=== PATIENT | female | born 1970 | race Caucasian/White ===

== ENCOUNTER 2025-02-20 12:26 | Outpatient (AMB) | payer OTHER, SELFPAY ==
--- NOTE | 2025-02-20 12:34 | A.OFFVIS_ITS ---
VS Expanded 02/20/25 12:35 02/20/25 12:52 Height 5 ft 2 in 5 ft 2 in Weight 191 lb 2.252 oz 191 lb BMI 35.0 34.9 Intake Visit Reasons: Obesity Nutrition Presentation Details: Pt presents for MNT for obesity Pt reports dealing with elevated BP Started incorporating Physical activity : walking dog 15 minutes twice a day Typical meal Breakfast 9-10 am 2 eggs (boiled) with toast and butter , juice (diamond sapna hibiscus aand georges , pineapple root vegetables ( malanga/yautia and sweet potato) with cod with egg, cabbage onion , water or milk fruits: banana or apple 7-8 pm cereal (cornflakes with a tablespoon of peanut butter and milk lactose free) Pt reports working on making healthier food choices but has not noticed weight loss beverages: water, juice tea [facility]-Gckjeui-Rk.Jeor Equation Height: 5 ft 2 in Weight: 191 lb Resting Metabolic Rate: 1413.23 Calculated Activity Level: Sedentary Calories Needed to Maintain Weight: 1695.88 Diagnosis Nutrition problem #1: overweight/obesity As related to (etiology) #1: diagnosis As evidenced by (sign/symptom) #1: knowledge deficit of diet Assessment & Plan Assessment & Plan (1) Obesity (BMI 30-39.9): Code(s): E66.9 - Obesity, unspecified Category: Medical Plan: Wt: 87 Kg ( 03/03 ) Est kcal needs as per MSJ: 1700 (40% carb, 30% protein/fat) Est fluid needs as per 25-30 ml/d: 2600 Est prot per day as per 1 g/kg bw: 80 Recommend fiber intake : 8-10 g per day and gradually increase to 25-28 g per day for women and 35-38 g for men or as tolerated Recommend sodium intake per day : less than 1500 mg less than 2000 mg Educated patient on: ( R = reviewed V = verbalizes understanding N/R = needs review N/A = not applicable * Food sources of carbohydrate, adequate serving sizes and its role in various health conditions: R * Differences between complex carbohydrates a simple carbohydrates, role of fiber in diet: R * Lean protein sources of foods: R * Differences between types of fats and role in diet (mono on saturated fat fatty acids, saturated fatty acids, trans fats): R V N/R * Food sources of sodium in salt and healthy modifications for heart health in kidney health: R * Vitamins and minerals: R V N/R * Healthy plate method concept: R V * Physical activity: Benefits a precaution: R * Patient Instructions: Have one meal replacement at lunch time Choose low sodium food options - see list of low sodium seasonings, food options Coding Level of Care Code Nutr Indiv Intake (92040) Diagnoses Obesity (BMI 30-39.9) E66.9 Time Spent (min) 30
[2025-02-20 12:35] VITALS: BMI 35.0
--- OUTSIDE RECORDS SUMMARY | 2025-02-20 13:18 | XMS_ITS | Clinical Summary ---
Author Organization [facility] Address [address] [place] [address] Phone Care Team Providers Care Die Hardener Name Role Phone Elena Maher MD Primary Care Provider [phone] Allergies Active Allergy Reactions Criticality Noted Date Comments Aspirin Itching,Rash 01/31/2024 Medications diclofenac (VOLTAREN) 1 % topical gel Apply 1 g topically daily. 01/31/20 24 Active LORazepam (ATIVAN) 1 mg tablet Take 1 Tablet by mouth every 6 hours as needed for Anxiety. 04/03/20 24 Active temazepam (RESTORIL) 30 mg capsule Take 1 Capsule by mouth daily. 01/31/20 24 Active DULoxetine (CYMBALTA) [address] capsule Take 1 capsule (60 mg total) by mouth 1 (one) time each day. Do not crush or chew. 30 each 5 08/12/19 25 Active calcium lactate 100 mg calcium tablet Take 4 tablets (400 mg total) by mouth 1 (one) time each day. Active pregabalin (LYRICA) 50 mg capsule TAKE 1 CAPSULE (50 MG TOTAL) BY MOUTH 2 (TWO) TIMES A DAY. MAX DAILY AMOUNT: 100 MG 30 capsule 1 10/03/19 25 Active acetaminophen (TYLENOL) 500 mg tablet Take 1 tablet (500 mg total) by mouth every 6 (six) hours if needed for mild pain. 90 tablet 1 11/22/19 25 Active meloxicam (MOBIC) 7.5 mg tablet Take 1 tablet (7.5 mg total) by mouth 1 (one) time each day. 11/06/19 25 Active losartan (COZAAR) 100 mg tablet Take 1 tablet (100 mg total) by mouth 1 (one) time each day. 90 each 1 02/04/20 25 026 Active amitriptyline (ELAVIL) 50 mg tablet TAKE 1 TABLET BY MOUTH EVERYDAY AT BEDTIME 90 tablet 1 02/20/20 25 Active polyethylene glycol (Golytely) 236-22.74-6.7 4 -5.86 gram solution Take 4L by mouth once for one dose. May substitue any PEG. Starting at 6PM the night before your procedure drink 1 8oz glasses at your own pace until you complete half of the gallon. Finish 2nd half of the gallon 5 hours before your procedure. 4000 mL 08/01/19 25 025 Discontinued(T herapy completed) bisacodyL (DULCOLAX) 5 mg EC tablet Take 2 tablets by mouth right before beginning bowel prep. See instructions provided by the office 2 tablet 08/01/19 25 025 Discontinued(T herapy completed) meclizine (ANTIVERT) 12.5 mg tablet Take 1 tablet (12.5 mg total) by mouth 3 (three) times a day if needed for dizziness. 025 Discontinued(T herapy completed) amitriptyline (ELAVIL) 50 mg tablet Take 1 tablet (50 mg total) by mouth at bedtime. 90 tablet 1 08/12/19 25 025 Discontinued cyanocobalami n (VITAMIN B-12) 500 mcg tablet Take 1 tablet (500 mcg total) by mouth 1 (one) time each day. 025 Discontinued(P rescriber Discontinued) omega-3 acid ethyl esters (LOVAZA) 1 gram capsule Take 1 capsule (1 g total) by mouth 2 (two) times a day. 025 Discontinued(P rescriber Discontinued) losartan (COZAAR) 50 mg tablet TAKE 1 TABLET BY MOUTH EVERY DAY 90 tablet 3 11/05/19 25 025 Discontinued(D ose adjustment) hydroCHLOROth iazide (MICROZIDE) 12.5 mg capsule TAKE 1 CAPSULE BY MOUTH DAILY FOR 180 DAYS. 90 capsule 1 11/26/19 25 025 Discontinued(D ose adjustment) Active Problems Problem Noted Date Diagnosed Date Primary hypertension 02/03/2025 Obesity (BMI 30-39.9) 02/03/2025 Anxiety 01/31/2024 Fibromyalgia 01/31/2024 Hyperlipidemia 01/31/2024 Rheumatoid arthritis ([facility] V24, [facility] V28) 01/31/2024 Encounters Date Type Department Care Team Description 02/03/2025 8:30 AM EDT Office Visit Internal Medicine - [address] [place] [address] Elena Maher MD Encounter for annual physical exam (Primary Dx); Mixed hyperlipidemia; Fibromyalgia; Anxiety; Rheumatoid arthritis, involving unspecified site, unspecified whether rheumatoid factor present ([facility] V24, [facility] V28); Vitamin D deficiency; Other fatigue; Primary hypertension; Tubular adenoma of colon; Obesity (BMI 30-39.9) from Last 3 Months Immunizations Name Administration Dates Next Due Pneumococcal conjugate 20 va lent (Prevnar 20, PCV 20) 2mo and older 02/03/2025 Tdap Tetanus diptheria acell ular pertussis (Boostrix; Adacel) 7yo and older 02/03/2025 Surgical History Surgery Date Site/Laterality Comments HYSTERECTOMY PROCEDURE: HISTORICAL HYSTERECTOMY CHOLECYSTECTOMY PROCEDURE: HISTORICAL CHOLECYSTECTOMY SHOULDER SURGERY Right PROCEDURE: HISTORICAL SHOULDER SURGERY KNEE SURGERY Right PROCEDURE: HISTORICAL KNEE SURGERY HAND SURGERY Right PROCEDURE: HISTORICAL HAND SURGERY COLONOSCOPY W/ BIOPSIES COLONOSCOPY W/ BIOPSIES 08/22/2024 N/A Medical History Medical History Date Comments Anxiety Fibromyalgia Hyperlipidemia Primary hypertension 02/03/2025 Family History Medical History Relation Name Comments Dementia Aunt 1 maternal Dementia Aunt 2 maternal Diabetes Brother Rheum arthritis Brother Diabetes Father Diabetes Mother Hyperlipidemia Mother Stroke Mother Hyperlipidemia Sister 1 Hypertension Sister 1 Hyperthyroidism Sister 1 Ovarian cancer Sister 2 Colon cancer Son Relation Name Status Comments Aunt 1 Alive Aunt 2 Brother Alive Father Mother Sister 1 Alive Sister 2 Son Alive Social History Tobacco Use Types Packs/Day Years Used Date Smoking Tobacco: Never Smokeless Tobacco: Never Tobacco Cessation:Counseling Given: Not Answered Alcohol Use Standard Drinks/Week Comments Not Currently 0 (1 standard drink = 0.6 oz pur e alcohol) Interpersonal Safety Answer Date Record ed Physical Abuse 08/22/2024 Verbal Abuse 08/22/2024 Education Answer Date Recorded What is the highest level of school you have completed or the highest degree you have received? High school graduate 02/03/2025 Comments No Sex and Gender Information Value Date Recorded Sex Assigned at Female 08/22/2024 1:18 PM EST Legal Sex Female 11:01 AM EDT Gender Identity Female 08/22/2024 1:18 PM EST Sexual Orientation Straight 08/22/2024 1: 18 PM EST Obstetrics History Last Filed Vital Signs Vital Sign Reading Time Taken Comments Blood Pressure 122/74 02/03/2025 8:32 AM EDT Pulse 87 02/03/2025 8:32 AM EDT Temperature 36.6 C (97.9 F) 02/03/2025 8:32 AM EDT Respiratory Rate 18 02/03/2025 8:32 AM EDT Oxygen Saturation 97% 02/03/2025 8:32 AM EDT Inhaled Oxygen Concentration - - Weight 85.3 kg (188 lb) 02/03/2025 8:32 AM EDT Height 157.5 cm (5' 2 ) 02/03/2025 8:32 AM EDT Body Mass Index 34.39 02/03/2025 8:32 AM EDT Plan of Treatment Health Maintenance Due Date Last Done Comments Hepatitis B Vaccines (1 of 3 - 19+ 3-dose series) 1987 Cervical Cancer Screening: Pap Smear 1989 Zoster Vaccines (1 of 2) 2018 Influenza Vaccine (#1) 2025 07/28/2024 Depression Screening 07/09/2025 01/31/2024 Postpon ed from 07/10/2024 (Not clinically appropriate to address at this time) Hypertension/CHF/CAD Annual BMP Blood Test 02/03/2026 02/03/2025, 09/02/2024, 01/31/2024, Additional history exists Social Influencers of Health Screening 02/03/2026 02/03/2025 Breast Cancer Screening 05/02/2026 05/02/2024 Cholesterol Screening (Lipid Panel) 02/03/2030 02/03/2025, 09/02/2024, 01/31/2024, Additional history exists Colorectal Cancer Screening: Colonoscopy 08/22/2034 08/22/2024 DTaP,Tdap,and Td Vaccines (2 - Td or Tdap) 02/03/2035 02/03/2025 HIV Screening Completed 01/31/2024, 01/31/2024 Hepatitis C Screening Completed 01/31/2024 COVID-19 Vaccine Completed 07/28/2024 Pneumococcal Vaccine: 50+ Years Completed 02/03/2025 HIB Vaccines Aged Out No longer eligi ble based on patient's age to complete this topic HPV Vaccines Aged Out No longer eligi ble based on patient's age to complete this topic Hepatitis A Vaccines Aged Out No long er eligible based on patient's age to complete this topic IPV Vaccines Aged Out No longer eligi ble based on patient's age to complete this topic MMR Vaccines Aged Out No longer eligi ble based on patient's age to complete this topic Meningococcal ACWY Vaccine Aged Out N o longer eligible based on patient's age to complete this topic Meningococcal B Vaccine Aged Out No l onger eligible based on patient's age to complete this topic RSV Immunization Patients Under 20 months Aged Out No longer eligible b ased on patient's age to complete this topic Varicella Vaccines Aged Out No longer eligible based on patient's age to complete this topic Procedures Procedure Name Priority Date/Time Associated Diagnosis Comments CBC WITH AUTO DIFFERENTIAL Routine 02/03/2025 9:31 AM EDT Encounter for annual physical exam Other fatigue VITAMIN D 25 HYDROXY Routine 02/03/2025 9:31 AM EDT Encounter for annual physical exam Vitamin D deficiency LIPID PANEL WITH REFLEX TO DIRECT LDL Routine 02/03/2025 9:31 AM EDT Encounter for annual physical exam Mixed hyperlipidemia COMPREHENSIVE METABOLIC PANEL Routine 02/03/2025 9:31 AM EDT Encounter for annual physical exam Other fatigue VITAMIN B12 Routine 02/03/2025 9:31 AM EDT Encounter for annual physical exam Other fatigue CBC AND DIFFERENTIAL Routine 02/03/2025 9:31 AM EDT Encounter for annual physical exam Other fatigue COLONOSCOPY Routine 08/22/2024 2:41 PM EST Colon cancer screening RADHA SCREENING DIGITAL Routine 05/02/2024 3:30 PM EDT Encounter for screening mammogram for malignant neoplasm of breast DEPRESSION SCREENING Routine 01/31/2024 HEPATITIS C SCREENING Routine 01/31/2024 HIV SCREENING Routine 01/31/2024 from Last 3 Months or Most Recently Relevant to Health Maintenance Results * (ABNORMAL) Lipid panel with reflex to direct LDL (02/03/2025 9:31 AM EDT) Cholesterol 220(H) 0 - 200 mg/dL LAB CHEMISTRY METHOD 02/03/2025 4:02 PM EDT [facility] Triglycerides 182(H) 0 - 150 mg/dL LAB CHEMISTRY METHOD 02/03/2025 4:02 PM EDT [facility] HDL 47 >=40 mg/dL LAB CHEMISTRY METHOD 02/03/2025 4:02 PM EDT [facility] LDL Calculated 137(H) 0 - 100 mg/dL LAB CHEMISTRY METHOD 02/03/2025 4:02 PM EDT [facility] VLDL Cholesterol Wally 36.4 mg/dL LAB CHEMISTRY METHOD 02/03/2025 4:02 PM T [facility] Non HDL Chol. (LDL+VLDL) 173(H) <145 mg/dL LAB CHEMISTRY METHOD 02/03/2025 4:02 PM EDT [facility] Chol/HDL Ratio 4.7(H) 0.0 - 4.4 LAB CHEMISTRY METHOD 02/03/2025 4:02 PM EDT [facility] Blood Venous blood specimen / Unknown Venipuncture / Unknown 02/03/2025 9:31 AM EDT 02/03/2025 9:31 AM EDT us Elena Maher MD LAB BLOOD ORDERABLES Final Resul t [facility] [address] [place] [address], * (ABNORMAL) CBC auto differential (02/03/2025 9:31 AM EDT) [facility] WBC 9.7 4.8 - 10.8 K/mcL LAB HEMETOLOGY METHOD 02/03/2025 2:37 PM EDT [facility] RBC 5.40(H) 3.80 - 4.80 M/mcL LAB HEMETOLOGY METHOD 02/03/2025 2:37 PM EDT [facility] Hemoglobin 14.8 11.5 - 16.0 g/dL LAB HEMETOLOGY METHOD 02/03/2025 2:37 PM EDT [facility] Hematocrit 46.4 35.0 - 47.0 % LAB HEMETOLOGY METHOD 02/03/2025 2:37 PM EDT [facility] MCV 86.6 79.0 - 98.0 FL LAB HEMETOLOGY METHOD 02/03/2025 2:37 PM EDT [facility] MCH 27.6 27.0 - 32.0 pcg LAB HEMETOLOGY METHOD 02/03/2025 2:37 PM EDT [facility] MCHC 31.9(L) 32.0 - 37.0 g/dL LAB HEMETOLOGY METHOD 02/03/2025 2:37 PM EDT [facility] RDW 14.9 11.0 - 15.0 % LAB HEMETOLOGY METHOD 02/03/2025 2:37 PM EDT [facility] Platelets 315 130 - 400 K/mcL LAB HEMETOLOGY METHOD 02/03/2025 2:37 PM EDT [facility] MPV 9.2 7.0 - 11.0 FL LAB HEMETOLOGY METHOD 02/03/2025 2:37 PM EDT [facility] NRBC 0.0 <1.0 % LAB HEMETOLOGY METHOD 02/03/2025 2:37 PM EDT [facility] NRBC Absolute 0.00 <0.10 K/mcL LAB HEMETOLOGY METHOD 02/03[facility]2025 [facility] Neutrophils Relative 55.6 % LAB HEMETOLOGY METHOD 02/03/2025 2:37 PM EDT [facility] Lymphocytes Relative 36.8 % LAB HEMETOLOGY METHOD 02/03/2025 2:37 PM EDT [facility] Monocytes Relative 5.4 % LAB HEMETOLOGY METHOD 02/03/2025 2:37 PM EDT [facility] Eosinophils Relative 1.5 % LAB HEMETOLOGY METHOD 02/03/2025 2:37 PM [facility] Basophils Relative 0.5 % LAB HEMETOLOGY METHOD 02/03/2025 2:[facility] Immature Granulocytes Relative 0.2 % LAB HEMETOLOGY METHOD 02/03/2025 2:37 PM [facility] Neutrophils Absolute 5.38 1.50 - 7.00 K/mcL LAB HEMETOLOGY METHOD 02/03/2025 2:37 PM [facility] Lymphocytes Absolute 3.57 1.00 - 5.00 K/mcL LAB HEMETOLOGY METHOD 02/03/2025 2:37 [facility] Monocytes Absolute 0.52 0.20 - 1.00 K/mcL LAB HEMETOLOGY METHOD 02/03/2025 2:37 PM [facility] Eosinophils Absolute 0.15 0.00 - 0.50 K/mcL LAB HEMETOLOGY METHOD 02/03/2025 2:37 PM [facility] Basophils Absolute 0.05 0.00 - 0.20 K/mcL LAB HEMETOLOGY METHOD 02/03/2025 2:37 PM EDT [facility] Immature Granulocytes Absolute 0.02 0.00 - 0.03 K/mcL LAB HEMETOLOGY METHOD 02/03/2025 2:37 PM EDT [facility] Blood Venous blood specimen / Unknown Venipuncture / Unknown 02/03/2025 9:31 AM EDT 02/03/2025 9:31 AM EDT Elena Maher MD LAB BLOOD ORDERABLES Final Resul t Performing Organization Address [facility] de Phone Number [facility] [address] [place] [address], * Vitamin D 25 hydroxy (02/03/2025 9:31 AM EDT) Vit D, 25-Hydroxy 34.8 30.0 - 80.0 ng/mL LAB CHEMISTRY METHOD 02/03/2025 4:47 PM EDT [facility] Blood Venous blood specimen / Unknown Venipuncture / Unknown 02/03/2025 9:31 AM EDT 02/03/2025 9:31 AM EDT Elena Maher MD LAB BLOOD ORDERABLES Final Resul t Performing Organization Address [facility]/ZIP Co de Phone Number [facility] [address] [place] [address], [place] [phone] * Vitamin B12 (02/03/2025 9:31 AM EDT) Vitamin B-12 700 250 - 900 pcg/mL LAB CHEMISTRY METHOD 02/03/2025 4:02 PM EDT [facility] Blood Venous blood specimen / Unknown Venipuncture / Unknown 02/03/2025 9:31 AM EDT 02/03/2025 9:31 AM EDT Elena Maher MD LAB BLOOD ORDERABLES Final Resul t [facility] [address] [place] [address], * Comprehensive metabolic panel (02/03/2025 9:31 AM EDT) Sodium 140 133 - 145 mmol/L LAB CHEMISTRY METHOD 02/03/2025 4:02 PM [facility] Potassium 4.5 3.5 - 5.5 mmol/L LAB CHEMISTRY METHOD 02/03/2025 4:02 PM [facility] Chloride 105 96 - 110 mmol/L LAB CHEMISTRY METHOD 02/03/2025 4:02 PM [facility] CO2 30 21 - 32 mmol/L LAB CHEMISTRY METHOD 02/03/2025 4:02 PM [facility] Anion Gap 5 3 - 11 LAB CHEMISTRY METHOD 02/03/2025 4:02 PM [facility] Glucose 99 70 - 100 mg/dL LAB CHEMISTRY METHOD 02/03/2025 4:02 PM [facility] BUN 17 5 - 25 mg/dL LAB CHEMISTRY METHOD 02/03/2025 4:02 PM [facility] Creatinine 0.58 0.50 - 1.10 mg/dL LAB CHEMISTRY METHOD 02/03/2025 4:02 PM [facility] eGFR 106 >=60 mL/min/1. 73m2 LAB CHEMISTRY METHOD 02/03/2025 4:02 PM [facility] Comment:Calculation based on the Chronic Kidney Disease Epidemiology Collaboration (CKD-EPI) equation refit without adjustment for race. BUN/Creatinine Ratio 29.3 LAB CHEMISTRY METHOD 02/03/2025 4:02 PM [facility] Calcium 9.6 8.5 - 10.5 mg/dL LAB CHEMISTRY METHOD 02/03/2025 4:02 PM [facility] AST (SGOT) 19 10 - 42 unit/L LAB CHEMISTRY METHOD 02/03/2025 4:02 PM EDT [facility] ALT (SGPT) 37 10 - 60 unit/L LAB CHEMISTRY METHOD 02/03/2025 4:02 PM EDT [facility] Alkaline Phosphatase 99 42 - 121 unit/L LAB CHEMISTRY METHOD 02/03/2025 4:02 PM EDT [facility] Total Protein 7.3 6.0 - 8.0 g/dL LAB CHEMISTRY METHOD 02/03/2025 4:02 PM EDT [facility] Albumin 4.0 3.2 - 5.0 g/dL LAB CHEMISTRY METHOD 02/03/2025 4:02 PM EDT [facility] Total Bilirubin 0.3 0.0 - 1.4 mg/dL LAB CHEMISTRY METHOD 02/03/2025 4:02 PM EDT [facility] Blood Venous blood specimen / Unknown Venipuncture / Unknown 02/03/2025 9:31 AM EDT 02/03/2025 9:31 AM EDT Elena Maher MD LAB BLOOD ORDERABLES Final Resul t [facility] [address] [place] [address], * [place]ONOSCOPY [place]est[place] - [facility] ENDOSCOPY (08/22/2024 2:41 PM EST) Anatomical Region Laterality Modality Endoscopy 08/22/2024 2:25 PM EST Impressions 08/22/2024 2:42 PM EST - The examined portion of the ileum was normal. - One 5 mm polyp in the ascending colon, removed with a cold snare. Resected and retrieved. - One 4 mm polyp in the descending colon, removed with a cold snare. Resected and retrieved. - Internal hemorrhoids. Recommendation: - Await pathology results. - Repeat colonoscopy for surveillance based on pathology results. Narrative 08/22/2024 2:42 PM EST [facility] GI Patient Name: Leticia Sun Procedure Date: 08/22/2024 2:25 PM Date of : 1970 Age: 54 Gender: Female Note Status: Finalized Attending MD: Denia Denson MD, Procedure Date No Time: 08/22/2024 Procedure: Colonoscopy Indications: Screening in patient at increased risk: Family history of 1st-degree relative with colorectal cancer before age 60 years Providers: Denia Denson MD Referring MD: Elena Maher MD Medicines: Propofol per Anesthesia Complications: No immediate complications. Estimated Blood Loss: Estimated blood loss: none. Procedure: Pre-Anesthesia Assessment: - ASA Grade Assessment: II - A patient with mild systemic disease. After I obtained informed consent, the scope was passed under direct vision. Throughout the procedure, the patient's blood pressure, pulse, and oxygen saturations were monitored continuously.The Colonoscope was introduced through the anus and advanced to the terminal ileum. The colonoscopy was performed without difficulty. The patient tolerated the procedure well. The quality of the bowel preparation was good. Findings: The perianal and digital rectal examinations were normal. The terminal ileum appeared normal. A 5 mm polyp was found in the ascending colon. The polyp was sessile. The polyp was removed with a cold snare. Resection and retrieval were complete. A 4 mm polyp was found in the descending colon. The polyp was sessile. The polyp was removed with a cold snare. Resection and retrieval were complete. Internal hemorrhoids were found during retroflexion. The hemorrhoids were Grade I (internal hemorrhoids that do not prolapse). Procedure Code(s): --- Professional --- 76900, Colonoscopy, flexible; with removal of tumor(s), polyp(s), or other lesion(s) by snare technique Diagnosis Code(s): --- Professional --- Z80.0, Family history of malignant neoplasm of digestive organs D12.2, Benign neoplasm of ascending colon D12.4, Benign neoplasm of descending colon CPT copyright 2020 [employer]. All rights reserved. The codes documented in this report are preliminary and upon reimbursement specialist review may be revised to meet current compliance requirements. Denia Denson MD 08/22/2024 2:42:05 PM This report has been signed electronically.Denia Denson MD Number of Addenda: 0 Note Initiated On: 08/22/2024 2:25 PM Scope In: Scope Out: Endoscopy Department at [facility] - [address] [place] [id number] Procedure Note Denia Denson MD - 08/22/2024 [facility] GI Patient Name: Leticia Sun Procedure Date: 08/22/2024 2:25 PM Date of : 1970 Age: 54 Gender: Female Note Status: Finalized Attending MD: Denia Denson MD, Procedure Date No Time: 08/22/2024 Procedure: Colonoscopy Indications: Screening in patient at increased risk: Familyhistory of 1st-degree relative with colorectal cancerbefore age 60 years Providers: Denia Denson MD Referring MD: Elena Maher MD Medicines: Propofol per Anesthesia Complications: No immediate complications. Estimated Blood Loss: Estimated blood loss: none. Procedure: Pre-Anesthesia Assessment: - ASA Grade Assessment: II - A patient with mild systemic disease. After I obtained informed consent, the scope was passed under direct vision. Throughout theprocedure, the patient's blood pressure, pulse, and oxygen saturations were monitored continuously.The Colonoscope was introduced through the anus and advanced to the terminal ileum. The colonoscopy was performed without difficulty. The patient tolerated the procedure well. The quality of the bowel preparation was good. Findings: The perianal and digital rectal examinations were normal. The terminal ileum appeared normal. A 5 mm polyp was found in the ascending colon. The polyp was sessile. The polyp was removed with acold snare. Resection and retrieval were complete. A 4 mm polyp was found in the descending colon. The polyp was sessile. The polyp was removed with acold snare. Resection and retrieval were complete. Internal hemorrhoids were found duringretroflexion. The hemorrhoids were Grade I (internal hemorrhoids that do not prolapse). Procedure Code(s): --- Professional --- 25999, Colonoscopy, flexible; with removal of tumor(s), polyp(s), or other lesion(s) by snare technique Diagnosis Code(s): --- Professional --- Z80.0, Family history of malignant neoplasm of digestive organs D12.2, Benign neoplasm of ascending colon D12.4, Benign neoplasm of descending colon CPT copyright 2020 [employer]. All rights reserved. The codes documented in this report are preliminary and upon reimbursement specialist reviewmay be revised to meet current compliance requirements. Denia Denson MD 08/22/2024 2:42:05 PM This report has been signed electronically.Denia Denson MD Number of Addenda: 0 Note Initiated On: 08/22/2024 2:25 PM Scope In: Scope Out: Endoscopy Department at [facility] - [address] [place] [phone] IMPRESSION: - The examined portion of the ileum was normal. - One 5 mm polyp in the ascending colon, removedwith a cold snare. Resected and retrieved. - One 4 mm polyp in the descending colon, removedwith a cold snare. Resected and retrieved. - Internal hemorrhoids. Recommendation: - Await pathology results. - Repeat colonoscopy for surveillance based on pathology results. us Denia Denson MD GI~PROCEDURE ORDERABLES Final Result * RADHA SCREENING DIGITAL (05/02/2024 3:30 PM EDT) Anatomical Region Laterality Modality Mammography 05/02/2024 1:30 PM EDT Narrative 05/02/2024 3:30 PM EDT [facility] Diagnostic Imaging Department [address] [place] [address] [id number] Patient: LETICIA SUNO.B./Age/Sex: 1970 - 53 - F Unit#: [id number] Location/Status: SPDIMAM/REG CLI Mnemonic/Ordering Site: DIGSC/SPMAM Ordering Physician: ZEN POSADAS APRN Radha Screening Digital - 05/02/24 - 1415 Report Status:Signed EXAM: [facility] Screening Digital EXAM DATE AND TIME: 05/02/2024 2:16 PM HISTORY: Annual screening COMPARISON: Outside film from [place] 06/20/2022, 05/17/2021 and 03/03/2020 TECHNIQUE: Bilateral digital breast tomosynthesis was performed in the CC and MLO projections. Computer aided detection with [employer] 7.2-H and [employer] 3D 3.1 was employed. TISSUE DENSITY: b. There are scattered areas of fibroglandular density. FINDINGS: No suspicious masses, grouped microcalcifications, or areas of architectural distortion are seen. The skin and vascularity are unremarkable. IMPRESSION: Stable mammographic appearance of the breasts. No evidence of malignancy is seen. A negative mammogram in the presence of a clinically suspicious palpable abnormality does not preclude the possibility of malignancy or alter the evelia cations for biopsy. BI-RADS: Category 1: Negative RECOMMENDATION(S): 1: Routine screening mammogram BILATERAL in 1 year. Dictating Physician: TRISH DAVIDSON MD Electronically Signed by: TRISH DAVIDSON MD Dic Date/Time: 05/02/24 1527 Sign date/Time: 05/02/24 1530 Procedure Note Trish Davidson MD - 05/11/2024 [facility] Diagnostic Imaging Department [address] [place], [place] [id number] Patient: LETICIA SUN/Age/Sex: 1970 - 53 - F Unit#: [id number] Location/Status: SPDIMAM/REG CLI Mnemonic/Ordering Site: [facility] Ordering Physician: ZEN POSADAS APRN Radha Screening Digital - 05/02/24 - 1415 Report Status:Signed EXAM: Radha Screening Digital EXAM DATE AND TIME: 05/02/2024 2:16 PM HISTORY: Annual screening COMPARISON: Outside film from [place] 06/20/2022, 05/17/2021 and03/03/2020 TECHNIQUE: Bilateral digital breast tomosynthesis was performed in the [employer] MLO projections. Computer aided detection with [employer] 7.2-H and[employer] 3D 3.1 was employed. TISSUE DENSITY: b. There are scattered areas of fibroglandular density. FINDINGS: No suspicious masses, grouped microcalcifications, or areas ofarchitectural distortion are seen. The skin and vascularity are unremarkable. IMPRESSION: Stable mammographic appearance of the breasts. No evidence of malignancyis seen. A negative mammogram in the presence of a clinically suspicious palpable abnormality does not preclude the possibility of malignancy or alter theindi cations for biopsy. BI-RADS: Category 1: Negative RECOMMENDATION(S): 1: Routine screening mammogram BILATERAL in 1 year. Dictating Physician: TRISH DAVIDSON MD Electronically Signed by: TRISH DAVIDSON MD Dic Date/Time: 05/02/24 1527 Sign date/Time: 05/02/24 1530 Zen Posadas PSYCHOLOGY TECHNICIAN IMG BI PROCEDURES Final Result * Depression Screening (01/31/2024) Depression Screening Abstracted Historical Provider HEALTH MAINTENANCE Final Result * HIV Screening (01/31/2024) HIV Screening Abstracted Historical Provider HEALTH MAINTENANCE Final Result * Hepatitis C Screening (01/31/2024) Hepatitis C Screening Abstracted Historical Provider HEALTH MAINTENANCE Final Result from Last 3 Months or Most Recently Relevant to Health Maintenance Insurance [facility] Care Teams Die Hardener Relationship Specialty Start Date End Date Elena Maher MD [address] [place] [address] [address] [place] [address] PCP - General 10/24/23
[2025-02-25 09:56] VITALS: BMI 34.9
== END 2025-02-20 13:13 | disposition home or self-care (01) ==
LOC: HO.ENCR 12:27
PROVIDERS: PCP Student in an Organized Health Care Education/Training Program; Visit Provider Dietitian, Registered
DX: E66.9 Obesity, unspecified (principal)

== ENCOUNTER → 2025-02-20 12:26 | Outpatient (BNVA) | payer OTHER, SELFPAY | PROVIDERS: PCP Student in an Organized Health Care Education/Training Program; Visit Provider Dietitian, Registered | DX: E66.9 Obesity, unspecified (principal); R03.0 Elevated blood-pressure reading, without diagnosis of hypertension; Z68.34 Body mass index [BMI] 34.0-34.9, adult; Z71.3 Dietary counseling and surveillance | CPT/HCPCS: 97802 ==

== ENCOUNTER 2025-04-10 11:35 | Outpatient (AMB) | payer OTHER, SELFPAY ==
[2025-04-10 12:35] VITALS: BMI 34.9
--- NOTE | 2025-04-10 12:35 | A.OFFVIS_ITS ---
VS Expanded 04/10/25 12:35 Height 5 ft 2 in Weight 190 lb 11.198 oz BMI 34.9 Intake Visit Reasons: obesity Medication List - Last Reconciled 04/10/[address], LDN magnesium citrate 125 mg PO BEDTIME omega-3 acid ethyl esters 1 cap PO DAILY Nutrition Presentation Details: Pt presents for MNT f/u for obesity Pt reports working on diet modifications, but does not see wt loss. Has coffee with 1/2 tbsp collagen Lunch: salad (lettuce/spinach/avocado/olive/ chicken thigh , water, before and after Dinner: follows healthy plat method snacks 4+/day fruits: 3-4/day vegetables: salad choosing low fat milk or fat free milk walking 30-40 min , 3 times/wk Assessment & Plan Assessment & Plan (1) Obesity (BMI 30-39.9): Code(s): E66.9 - Obesity, unspecified Category: Medical Plan: Wt: 87 Kg ( 03/03 ), 05/03 Est kcal needs as per MSJ: 1700 (40% carb, 30% protein/fat) Est fluid needs as per 25-30 ml/d: 2600 Est prot per day as per 1 g/kg bw: 80 Recommend fiber intake : 8-10 g per day and gradually increase to 25-28 g per day for women and 35-38 g for men or as tolerated Recommend sodium intake per day : less than 1500 mg less than 2000 mg Educated patient on: ( R = reviewed V = verbalizes understanding N/R = needs review N/A = not applicable * Food sources of carbohydrate, adequate serving sizes and its role in various health conditions: R * Differences between complex carbohydrates a simple carbohydrates, role of fiber in diet: R * Lean protein sources of foods: R * Differences between types of fats and role in diet (mono on saturated fat fatty acids, saturated fatty acids, trans fats): R * Food sources of sodium in salt and healthy modifications for heart health in kidney health: R * Vitamins and minerals: R * Healthy plate method concept: R V * Physical activity: Benefits a precaution: R * Patient Instructions: Have a meal replacement Choose low sodium foods- see list Coding Level of Care Code Nutr Indiv Subseq (67357) Diagnoses Obesity (BMI 30-39.9) E66.9 Time Spent (min) 30
--- OUTSIDE RECORDS SUMMARY | 2025-04-10 13:25 | XMS_ITS | Clinical Summary ---
Author Organization [facility] Address [address] [place] [id number] Phone Care Team Providers Care Travel Assistant Name Role Phone Zen Posadas ACCOUNTING GENERALIST Primary Care Provider [phone] Allergies Active Allergy Reactions Criticality Noted Date Comments Aspirin 09/26/2024 Medications losartan (COZAAR) 50 MG tablet Take 1 tablet by mouth every morning. 5 Active hydroCHLOROthiazid e 12.5 mg capsule Take 12.5 mg by mouth every morning. 5 Active DULoxetine (CYMBALTA) 60 MG capsule Take 60 mg by mouth daily. 5 Active temazepam (RESTORIL) 30 mg capsule Take 30 mg by mouth daily. Active LORazepam (ATIVAN) 2 MG tablet Take 2 mg by mouth every 6 (six) hours as needed for anxiety. Active amitriptyline (ELAVIL) 50 MG tablet Take 50 mg by mouth. 5 Active pregabalin (LYRICA) 50 MG capsule Take 50 mg by mouth. 5 Active omega-3 acid ethyl esters (LOVAZA) 1 gram capsule Take 1 capsule by mouth 2 (two) times a day. Active calcium lactate 100 mg calcium Tab Take 400 mg by mouth. Active cyanocobalamin, vitamin B-12, 500 MCG tablet Take 500 mcg by mouth. Active acetaminophen (TYLENOL) 650 MG CR tablet Take 1,300 mg by mouth every 6 (six) hours as needed for pain (specific location in comments). Active meloxicam (MOBIC) 7.5 MG tabletIndications: Polyarticular osteoarthritis Take once daily with food as follows: 1 tablet for 1 wk, then 2 tablets together thereafter 30 tablet Active Active Problems Problem Noted Date Diagnosed Date Polyarticular osteoarthritis 11/05/2024 Assessment & Plan (11/05/2024 10:57 AM EDT): Predominantly involving the right greater than left knees and right first MTP. Trial meloxicam, half dose to start given documented aspirin allergy. She can increase to full dose after 1 week if no adverse events with half dose. She will contact me if she has any medication concerns. If meloxicam is effective and tolerated, refills of this medication will be deferred to her primary care provider. 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 I have ordered some baseline serologies and inflammatory markers for a more complete picture. 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 I have provided written information in Marshallese on fibromyalgia for her review. I have encouraged her to continue low-dose aerobic exercise routine, which would be ideally water-based. She should discuss potential benefit of sleep study with her primary care provider given snoring and fatigue. In the absence of proven comorbid rheumatoid or other inflammatory arthritis, there is no indication for ongoing rheumatology specific management of this noninflammatory condition. We discussed that, as she is following with a psychiatrist, I will defer management of her antidepressants and anxiolytics to her psychiatrist. Sicca syndrome 11/05/2024 Assessment & Plan (11/05/2024 10:58 AM EDT): Oral sicca almost certainly exacerbated by amitriptyline, duloxetine, and pregabalin, but will obtain baseline Sjogren's serologies for completeness with routine labs today. Family History Medical History Relation Comments Diabetes Brother Rheumatoid arthritis Brother Diabetes Father Diabetes Mother Hyperlipidemia Mother Stroke Mother Hypertension Sister Hypothyroidism Sister Relation Status Comments Brother Father Mother Sister Social History Tobacco Use Types Packs/Day Years Used Date Smoking Tobacco: Never Smokeless Tobacco: Never Tobacco Cessation:Counseling Given: Not Answered Alcohol Use Standard Drinks/Week Comments Never 0 (1 standard drink = 0.6 oz pur e alcohol) Education Answer Date Recorded Are you interested in more education? Not on errol e 05/03/2024 Are you concerned about learning? Not on file 05/03/2024 No 05/03/2024 No 05/03/2024 Digital Access Answer Date Recorded No 05/03/2024 No 05/03/2024 Reliable internet access at home? Not on file 05/03/2024 Device with a working camera? Not on file Comments Unknown Sex and Gender Information Value Date Recorded Sex Assigned at Not on file Legal Sex Female 11:54 AM EDT Gender Identity Not on file Sexual Orientation Not on file Last Filed Vital Signs Vital Sign Reading Time Taken Comments Blood Pressure 140/96 11/05/2024 9:35 AM EDT Pulse 93 11/05/2024 9:35 AM EDT Temperature - - Respiratory Rate - - Oxygen Saturation 96% 11/05/2024 9:35 AM EDT Inhaled Oxygen Concentration - - Weight 84.4 kg (186 lb) 11/05/2024 9:35 AM EDT Height 157.5 cm (5' 2 ) 11/05/2024 9:35 AM EDT Body Mass Index 34.02 11/05/2024 9:35 AM EDT Plan of Treatment Health Maintenance Due Date Last Done Comments Adult Td,Tdap Booster 1970 CREATININE LEVEL 1970 POTASSIUM LEVEL 1970 DEPRESSION SCREENING 1980 HEPATITIS C SCREENING 1986 HIV ONE-TIME SCREENING (18-6 5 YEARS) 1986 SMOKING STATUS SCREENING (On ce After 26 Yrs) 1994 SCREENING FOR DIABETES 2003 MAMMOGRAM 2008 COLOGUARD 2013 COLONOSCOPY 2013 COLORECTAL CANCER SCREENING 2013 FIT TEST 2013 FOBT 2013 SIGMOIDOSCOPY 2013 VIRTUAL COLONOSCOPY 2013 PNEUMOCOCCAL VACCINES (50+ y ears) (1 of 1 - PCV) 2018 ZOSTER VACCINES (1 of 2) 2018 INFLUENZA VACCINE (#1) 2025 07/28/2024 LIPID PANEL 09/02/2029 09/02/2024 COVID-19 VACCINE Completed 07/28/2024 HEPATITIS A VACCINES Aged Out No long er eligible based on patient's age to complete this topic HIB VACCINES Aged Out No longer eligi ble based on patient's age to complete this topic MENINGOCOCCAL VACCINES (ACWY) Aged Out No longer eligible based on patient's age to complete this topic MENINGOCOCCAL VACCINES (B) Aged Out N o longer eligible based on patient's age to complete this topic Medical Devices Not on file Insurance [employer] [place] [address] [address] [address] ACO Care Teams Travel Assistant Relationship Specialty Start Date End Date Zen Posadas NP [address] [facility] [address] [place] [address] PCP - General Nurse Practitioner 11/05/24 Additional Source Comments The information contained in this document represents components of the legal health record. It is not the complete legal health record.[facility]
--- OUTSIDE RECORDS SUMMARY | 2025-04-10 13:25 | XMS_ITS | Clinical Summary ---
Author Organization [facility] Address [address] [place] [address] Phone Care Team Providers Care Maintenance And Custodian Supervisor Name Role Phone Elena Maher MD Primary Care Provider [phone] Allergies Active Allergy Reactions Criticality Noted Date Comments Aspirin Itching,Rash 01/31/2024 Medications LORazepam (ATIVAN) 1 mg tablet Take 1 Tablet by mouth every 6 hours as needed for Anxiety. 4 Active temazepam (RESTORIL) 30 mg capsule Take 1 Capsule by mouth daily. 4 Active DULoxetine (CYMBALTA) [address] capsule Take 1 capsule (60 mg total) by mouth 1 (one) time each day. Do not crush or chew. 30 each 5 5 Active calcium lactate 100 mg calcium tablet Take 4 tablets (400 mg total) by mouth 1 (one) time each day. Active pregabalin (LYRICA) 50 mg capsule TAKE 1 CAPSULE (50 MG TOTAL) BY MOUTH 2 (TWO) TIMES A DAY. MAX DAILY AMOUNT: 100 MG 30 capsule 1 5 Active acetaminophen (TYLENOL) 500 mg tablet Take 1 tablet (500 mg total) by mouth every 6 (six) hours if needed for mild pain. 90 tablet 1 5 Active meloxicam (MOBIC) 7.5 mg tablet Take 1 tablet (7.5 mg total) by mouth 1 (one) time each day. 5 Active losartan (COZAAR) 100 mg tablet Take 1 tablet (100 mg total) by mouth 1 (one) time each day. 90 each 1 5 08/02/19 26 Active amitriptyline (ELAVIL) 50 mg tablet TAKE 1 TABLET BY MOUTH EVERYDAY AT BEDTIME 90 tablet 1 5 Active diclofenac (VOLTAREN) 1 % topical gel Apply 2 g topically 4 (four) times a day if needed (Pain). 100 g 11 5 Active Active Problems Problem Noted Date Diagnosed Date Primary hypertension 02/03/2025 Obesity (BMI 30-39.9) 02/03/2025 Anxiety 01/31/2024 Fibromyalgia 01/31/2024 Hyperlipidemia 01/31/2024 Rheumatoid arthritis (CMS/[facility] V24, CMS/[facility] V28) 01/31/2024 Encounters Date Type Department Care Team Description 04/09/2025 Lab Requisition [facility] - Main Lab [address] [facility] [place] [address] Debbi Castro MD Encounter for gynecological examination (general) (routine) without abnormal findings 02/03/2025 8:30 AM EDT Office Visit Internal Medicine - [place] [address] [place] [address] Elena Maher MD Encounter for annual physical exam (Primary Dx); Mixed hyperlipidemia; Fibromyalgia; Anxiety; Rheumatoid arthritis, involving unspecified site, unspecified whether rheumatoid factor present (CMS/HCC V24, CMS/[facility] V28); Vitamin D deficiency; Other fatigue; Primary hypertension; Tubular adenoma of colon; Obesity (BMI 30-39.9) from Last 3 Months Immunizations Immunization Administration Dates Next Due Pneumococcal conjugate 20 [...] Safety Answer Date Record ed Physical Abuse Unrecognized value 08/22/2024 Verbal Abuse Unrecognized value 08/22/2024 Education Answer Date Recorded What is [...] (2 - Td or Tdap) 02/03/2035 02/03/2025 RSV Immunization Adult Patients (1 - 1-dose 75+ series) 2043 HIV Screening Completed 01/31/2024, 01/31/2024 Hepatitis C [...] 08/22/2024 2:41 PM EST Colon cancer screening GIL SCREENING DIGITAL Routine 05/02/2024 3:30 PM EDT [...] LAB CHEMISTRY METHOD 02/03/2025 4:02 PM EDT [facility] Triglycerides 182(H) 0 - 150 mg/dL LAB CHEMISTRY METHOD 02/03/2025 4:02 PM EDT [facility] HDL 47 >=40 mg/dL LAB CHEMISTRY METHOD 02/03/2025 4:02 PM EDT [facility] LDL Calculated 137(H) 0 - 100 mg/dL LAB CHEMISTRY METHOD 02/03/2025 4:02 PM [facility] VLDL Cholesterol Wally 36.4 mg/dL LAB CHEMISTRY METHOD 02/03/2025 4:02 PM EDT [facility] Non HDL Chol. (LDL+VLDL) 173(H) <145 mg/dL LAB CHEMISTRY METHOD 02/03/2025 4:02 PM EDT [facility] Chol/HDL Ratio 4.7(H) 0.0 - 4.4 LAB CHEMISTRY METHOD 02/03/2025 4:02 PM [facility] Blood Venous blood specimen / Unknown Venipuncture / Unknown 02/03/2025 9:31 AM EDT 02/03/2025 9:31 AM EDT us Elena Maher MD LAB BLOOD ORDERABLES Final Resul t [facility] [address] [place] [address], [place] [phone] * (ABNORMAL) CBC auto differential (02/03/2025 9:31 AM EDT) WBC 9.7 4.8 - 10.8 K/mcL LAB HEMETOLOGY METHOD 02/03[facility]2025 2[facility] RBC 5.40(H) 3.80 - 4.80 M/mcL LAB HEMETOLOGY METHOD 02/03/2025 2:37 PM [facility] Hemoglobin 14.8 11.5 - 16.0 g/dL LAB HEMETOLOGY METHOD 02/03/2025 2:37 PM EDT [facility] Hematocrit 46.4 35.0 - 47.0 % LAB HEMETOLOGY METHOD 02/03/2025 2:[facility] MCV 86.6 79.0 - 98.0 FL LAB HEMETOLOGY METHOD 02/03/2025 2:37 PM [facility] MCH 27.6 27.0 - 32.0 pcg LAB HEMETOLOGY METHOD 02/03/2025 2:37 PM EDT [facility] MCHC 31.9(L) 32.0 - 37.0 g/dL LAB HEMETOLOGY METHOD 02/03/2025 2:37 PM EDT [facility] RDW 14.9 11.0 - 15.0 % LAB HEMETOLOGY METHOD 02/03/2025 2:37 [facility] Platelets 315 130 - 400 K/mcL LAB HEMETOLOGY METHOD 02/03/2025 2:37 [facility] MPV 9.2 7.0 - 11.0 FL LAB HEMETOLOGY METHOD 02/03/2025 2:[facility] NRBC 0.0 <1.0 % LAB HEMETOLOGY METHOD 02/03/2025 2:37 PM [facility] NRBC Absolute 0.00 <0.10 K/mcL LAB HEMETOLOGY METHOD 02/03/2025 2:37 [facility] Neutrophils Relative 55.6 % LAB HEMETOLOGY METHOD 02/03/2025 2:37 PM [facility] Lymphocytes Relative 36.8 % LAB HEMETOLOGY METHOD 02/03/2025 2:37 PM [facility] Monocytes Relative 5.4 % LAB HEMETOLOGY METHOD 02/03/2025 2:37 PM [facility] Eosinophils Relative 1.5 % LAB HEMETOLOGY METHOD 02/03/2025 2:37 PM [facility] Basophils Relative 0.5 % LAB HEMETOLOGY METHOD 02/03/2025 2:[facility] Immature Granulocytes Relative 0.2 % LAB HEMETOLOGY METHOD 02/03/2025 2:37 PM [facility] Neutrophils Absolute 5.38 1.50 - 7.00 K/mcL LAB HEMETOLOGY METHOD 02/03/2025 2:[facility] Lymphocytes Absolute 3.57 1.00 - 5.00 K/mcL LAB HEMETOLOGY METHOD 02/03/2025 2:37 PM EDT [facility] Monocytes Absolute 0.52 0.20 - 1.00 K/[facility] LAB HEMETOLOGY METHOD 02/03/2025 2:37 PM EDT [facility] Eosinophils Absolute 0.15 0.00 - 0.50 K/[facility] LAB HEMETOLOGY METHOD 02/03/2025 2:37 PM EDT [facility] Basophils Absolute 0.05 0.00 - 0.20 K/[facility] LAB HEMETOLOGY METHOD 02/03/2025 2:37 PM EDT [facility] Immature Granulocytes Absolute 0.02 0.00 - 0.03 K/[facility] LAB HEMETOLOGY METHOD 02/03/2025 2:37 PM EDT [facility] Blood Venous blood specimen / Unknown Venipuncture / Unknown 02/03/2025 9:31 AM EDT 02/03/2025 9:31 AM EDT Elena Maher MD LAB BLOOD ORDERABLES Final Resul t [facility] [address] [place] [address], * Vitamin D 25 hydroxy (02/03/2025 9:31 AM EDT) Vit D, 25-Hydroxy 34.8 30.0 - 80.0 ng/mL LAB CHEMISTRY METHOD 02/03/2025 4:47 PM EDT [facility] Blood Venous blood specimen / Unknown Venipuncture / Unknown 02/03/2025 9:31 AM EDT 02/03/2025 9:31 AM EDT Elena Maher MD LAB BLOOD ORDERABLES Final Resul t [facility] [address] [place] [address], [place] [phone] * Vitamin B12 (02/03/2025 9:31 AM EDT) [facility] Vitamin B-12 700 250 - 900 pcg/mL LAB CHEMISTRY METHOD 02/03/2025 4:02 PM EDT [facility] Blood Venous blood specimen / Unknown Venipuncture / Unknown 02/03/2025 9:31 AM EDT 02/03/2025 9:31 AM EDT Elena Maher MD LAB BLOOD ORDERABLES Final Resul t Performing Organization Address [facility]/ZIP Co de Phone Number [facility] [address] [place] [address], [place] [phone] * Comprehensive metabolic panel (02/03/2025 9:31 AM EDT) [facility] Sodium 140 133 - 145 mmol/L LAB CHEMISTRY METHOD 02/03/2025 4:02 PM [facility] Potassium 4.5 3.5 - 5.5 mmol/L LAB CHEMISTRY METHOD 02/03/2025 4:02 PM [facility] Chloride 105 96 - 110 mmol/L LAB CHEMISTRY METHOD 02/03/2025 4:02 PM [facility] CO2 30 21 - 32 mmol/L LAB CHEMISTRY METHOD 02/03/2025 4:02 PM [facility] Anion Gap 5 3 - 11 LAB CHEMISTRY METHOD 02/03/2025 4:02 PM [facility] Glucose 99 70 - 100 mg/dL LAB CHEMISTRY METHOD 02/03/2025 4:02 PM [facility] BUN 17 5 - 25 mg/dL LAB CHEMISTRY METHOD 02/03/2025 4:02 PM [facility] Creatinine 0.58 0.50 - 1.10 mg/dL LAB CHEMISTRY METHOD 02/03/2025 4:02 PM [facility] eGFR 106 >=60 mL/min/1. 73m2 LAB CHEMISTRY METHOD 02/03/2025 4:02 PM [facility] Comment:Calculation based on the Chronic Kidney Disease Epidemiology Collaboration (CKD-EPI) equation refit without adjustment for race. BUN/Creatinine Ratio 29.3 LAB CHEMISTRY METHOD 02/03/2025 4:02 PM [facility] Calcium 9.6 8.5 - 10.5 mg/dL LAB CHEMISTRY METHOD 02/03/2025 4:02 PM [facility] AST (SGOT) 19 10 - 42 unit/L LAB CHEMISTRY METHOD 02/03/2025 4:02 PM [facility] ALT (SGPT) 37 10 - 60 unit/L LAB CHEMISTRY METHOD 02/03/2025 4:02 PM [facility] Alkaline Phosphatase 99 42 - 121 unit/L LAB CHEMISTRY METHOD 02/03/2025 4:02 PM [facility] Total Protein 7.3 6.0 - 8.0 g/dL LAB CHEMISTRY METHOD 02/03/2025 4:02 PM [facility] Albumin 4.0 3.2 - 5.0 g/dL LAB CHEMISTRY METHOD 02/03/2025 4:02 PM [facility] Total Bilirubin 0.3 0.0 - 1.4 mg/dL LAB CHEMISTRY METHOD 02/03/2025 4:02 PM [facility] Blood Venous blood specimen / Unknown Venipuncture / Unknown 02/03/2025 9:31 AM EDT 02/03/2025 9:31 AM EDT us Elena Maher MD LAB BLOOD ORDERABLES Final Resul t [facility] [address] [place] [address], * COLONOSCOPY Anesthesia - MAC; [facility] ENDOSCOPY (08/22/2024 2:41 PM EST) Anatomical Region [...] pathology results. Narrative 08/22/2024 2:42 PM EST [facility] GI Patient Name: Leticia Sun Procedure [...] not prolapse). Procedure Code(s): --- Professional --- 01247, Colonoscopy, flexible; with removal of tumor(s), polyp(s), or other lesion(s) by snare technique Diagnosis Code(s): --- Professional --- Z80.0, Family history of malignant neoplasm of digestive organs D12.2, Benign neoplasm of ascending colon D12.4, Benign neoplasm of descending colon CPT copyright 2020 [employer]. All rights reserved. The codes documented in this report are preliminary and upon geophysics scientist review may be revised to meet current compliance requirements. Denia Denson MD 08/22/2024 2:42:05 PM This report has been signed electronically.Denia Denson MD Number of Addenda: 0 Note Initiated On: 08/22/2024 2:25 PM Scope In: Scope Out: Endoscopy Department at [facility] - [address] [place] [phone] Procedure Note Denia Denson MD - 08/22/2024 [facility] GI Patient Name: Leticia Sun Procedure [...] not prolapse). Procedure Code(s): --- Professional --- 47594, Colonoscopy, flexible; with removal of tumor(s), polyp(s), or other lesion(s) by snare technique Diagnosis Code(s): --- Professional --- Z80.0, Family history of malignant neoplasm of digestive organs D12.2, Benign neoplasm of ascending colon D12.4, Benign neoplasm of descending colon CPT copyright 2020 [employer]. All rights reserved. The codes documented in this report are preliminary and upon geophysics scientist reviewmay be revised to meet current compliance requirements. Denia Denson MD 08/22/2024 2:42:05 PM This report has been signed electronically.Denia Denson MD Number of Addenda: 0 Note Initiated On: 08/22/2024 2:25 PM Scope In: Scope Out: Endoscopy Department at [facility] - [address] [place] [phone] IMPRESSION: - The examined portion of the [...] Denson MD GI~PROCEDURE ORDERABLES Final Result * GIL SCREENING DIGITAL (05/02/2024 3:30 PM EDT) Anatomical Region Laterality Modality Mammography 05/02/2024 1:30 PM EDT Narrative 05/02/2024 3:30 PM EDT [facility] Diagnostic Imaging Department [address] [place] [id number] Patient: DINOLETICIA /Age/Sex: 1970 - 53 - F Unit#: [id number] Location/Status: SPDIMAM/REG CLI Mnemonic/Ordering Site: [facility] Ordering Physician: ROSLYN RICO APRN [facility] Screening Digital - 05/02/24 - 1415 Report Status:Signed EXAM: [facility] Screening Digital EXAM DATE AND TIME: 05/02/2024 2:16 PM HISTORY: Annual screening COMPARISON: Outside film from [place] 06/20/2022, 05/17/2021 and 03/03/2020 TECHNIQUE: Bilateral digital breast tomosynthesis was performed in the CC and MLO projections. Computer aided detection with [employer] 7.2-H and [employer] 3D 3.1 was employed. TISSUE DENSITY: b. [...] Procedure Note Trish Davidson MD - 05/11/2024 [facility] Diagnostic Imaging Department [address] [place] [id number] Patient: DINOLETICIA D.O.B./Age/Sex: 1970 - 53 - F Unit#: [id number] Location/Status: SPDIMA/REG CLI Mnemonic/Ordering Site: [facility] Ordering Physician: ROSLYN RICO APRN [facility] Screening Digital - 05/02/24 - 1415 Report Status:Signed EXAM: [facility] Screening Digital EXAM DATE AND TIME: 05/02/2024 2:16 PM HISTORY: Annual screening COMPARISON: Outside film from [place] 06/20/2022, 05/17/2021 and03/03/2020 TECHNIQUE: Bilateral digital breast tomosynthesis was performed in the CCand MLO projections. Computer aided detection with [employer] 7[employer]H [employer] 3D 3.1 was employed. TISSUE DENSITY: b. [...] Date/Time: 05/02/24 1527 Sign date/Time: 05/02/24 1530 [place] [employer] CD REACTOR OPERATOR IMG BI PROCEDURES Final Result * Depression Screening (01/31/2024) Depression Screening Abstracted Historical Provider HEALTH MAINTENANCE Final Result * HIV Screening (01/31/2024) HIV Screening Abstracted Result [facility] Historical Provider HEALTH MAINTENANCE Final Result * Hepatitis C Screening (01/31/2024) Hepatitis C Screening Abstracted Result [facility] Historical Provider HEALTH MAINTENANCE Final Result from Last 3 Months or Most Recently Relevant to Health Maintenance Insurance [facility] [employer] Care Teams Maintenance And Custodian Supervisor Relationship Specialty Start Date End Date Elena Maher MD [address] [facility] [address] [place] [address] PCP - General 10/24/23
--- OUTSIDE RECORDS SUMMARY | 2025-04-10 13:25 | XMS_ITS | Encounter Summary ---
Author Organization [place] [address] Care Team Providers Care Seed Cleaner Operator Name Role Phone Elena Maher MD Primary Care Provider [phone] Encounter Details Date Type Department Care Team (Latest Contact Info) Description 04/09/[address] [facility] - Main Lab [address] [facility] [place] [address] Debbi Castro MD [address] [facility] [address] [place] [phone] Encounter for gynecological examination (general) (routine) without abnormal findings Social History Tobacco Use Types Packs/Day Years Used Date Smoking Tobacco: Never Smokeless Tobacco: Never Alcohol Use Standard Drinks/Week Comments Not Currently [...] Orientation Straight 08/22/2024 1: 18 PM EST documented as of this encounter Plan of Treatment Pending Results Name Type Priority Associated Diagnoses Date /Time Pap smear Pathology and Cytology Routine Encounter for gynecological examination (general) (routine) without abnormal findings 04/08/2025 12:00 PM EDT documented as of this encounter Visit Diagnoses Diagnosis Encounter for gynecological examination (general) (routine) without abnormal findings documented in this encounter Care Teams Seed Cleaner Operator Relationship Specialty Start Date End Date Elena Maher MD [address] [place] [phone] PCP - General 10/24/23 documented as of this encounter
== END 2025-04-10 13:17 | disposition home or self-care (01) ==
LOC: HO.ENCR 11:36
PROVIDERS: PCP Student in an Organized Health Care Education/Training Program; Visit Provider Dietitian, Registered
DX: E66.9 Obesity, unspecified (principal)

== ENCOUNTER → 2025-04-10 11:35 | Outpatient (BNVA) | payer OTHER, SELFPAY | PROVIDERS: PCP Student in an Organized Health Care Education/Training Program; Visit Provider Dietitian, Registered | DX: E66.9 Obesity, unspecified (principal); Z68.34 Body mass index [BMI] 34.0-34.9, adult | CPT/HCPCS: 97803 ==